=== PATIENT | female | born 1955 | race African-American/Black ===

== ENCOUNTER → 2017-04-21 | Outpatient (CLI) | payer OTHER ==
[~2017-04-21] VITALS: Ht 177.8 cm; Wt 79.4 kg
[~2017-04-21] MED LIST: ADVIL MIGRAINE200 M1 PO; ASPIR 8181 MG PO; B COMPLEX1 EACH PO; BENADRYL ALLERG25 MG PO; DYMISTA NASAL S23 GM NS; FUROSEMIDE 40 M40 M1 PO; GABAPENTIN600 M1 PO; HYDROXYZINE HCL10 M1 PO; KEPPRA PO; MAGNESIUM PO; METFORMIN HCL500 MG PO; MIRALAX17 G1 PO; MULTI VITAMIN1 EACH PO; NAPROXEN PO; TRAVATAN Z2.5 ML OPHTHALMIC; VITAMIN A8000 UNI1 PO; VITAMIN B-121000 MCG PO; VITAMIN C1000 MG PO; VITAMIN D PO; VITAMIN D32000 UNIT PO
--- NOTE | ~2017-04-21 | S ---
[facility] [place] [address] SURGICAL PATH RPT PROCEDURE Name: ADONIS BRITT Room #: REG JANETT Allen.#: [id number] Admission: 04/21/17 Date of : 55 Discharge: Report #: [id number] Path Case #: [id number] PATHOLOGY REPORT COLLECTION DATE: 04/21/2017 RECEIVED DATE: 04/21/2017 SUBMITTING PHYS: Dr. Felix Harvey OTHER PHYS: Dr. Kyle Garcia SPECIMEN(S) RECEIVED: A.Proximal colon B.Proximal ascending polyp C.Distal colon and rectum * * * * * * * * * * * * FINAL DIAGNOSIS: A. Large intestine, proximal colon, endoscopic biopsy: - Mild nonspecific changes, see comment. - Negative for dysplasia. B. Polyp, proximal ascending polyp, endoscopic biopsy: - Tubular adenoma. - Negative for high grade dysplasia. C. Large intestine, distal colon and rectum, endoscopic biopsy: - Mild nonspecific changes, see comment. - Negative for dysplasia. COMMENT: Parts A and C: Sections of colon biopsy tissues show a mild increase in cellularity of lamina propria including a few eosinophils. Rare eosinophils are present within the crypts and the surface epithelium. There are no granulomata, viral inclusions, or parasitic organisms present. The collagen layer underneath the epithelium is not thickened. There is no distortion in crypt architecture as well. There is no evidence of dysplasia. Overall findings are non-specific and may represent bowel preparation, resolving episode of colitis, focal active colitis, diverticulits as well as medication induced-colitis. Clinical correlation is suggested. (IUV; 04/25/17) PATHOLOGIST: rCistal Valente M.D. REPORT ELECTRONICALLY SIGNED BY: Cristal Valente M.D. DATE/TIME: 04/25/2017 16:43 * * * * * * * * * * * * GROSS PATHOLOGY: [facility] [address] [place] [address] SURGICAL PATH RPT PROCEDURE Name: ADONIS BRITT Room #: REG [facility]#: [id number] Admission: 04/21/17 Date of : 55 Discharge: Report #: [id number] Path Case #: [id number] A. Received in formalin labeled "Quincy Britt, proximal colon," are more than 10 segments of mayorga soft tissue measuring 1.5 x 0.5 x 0.2 cm in aggregate dimensions and ranging from 0.1 to 0.6 cm in maximum dimension. The specimen is submitted entirely in cassette A1. B. Received in formalin labeled " Quincy Britt, proximal ascending colon polyp," is a segment of mayorga soft tissue measuring 0.4 x 0.2 x 0.2 cm in maximum dimension. The specimen is submitted entirely in cassette B1. C. Received in formalin labeled " Quincy Britt, distal col and rectum," are more than 10 segments of mayorga soft tissue measuring 2.2 x 0.5 x 0.2 cm in aggregate dimensions and ranging from 0.1 to 0.7 cm in maximum dimension. The specimen is submitted entirely in cassette C1. (LUI; 04/22/2017) CLINICAL HISTORY: Diarrhea, diabetes, rule out colitis INITIAL CPT CODE(S): A; 74050 B; 14095 C; 90420 Professional services performed by [facility] at [facility] [address], [place] [address] Technical services performed by [facility] at [address] [place] [address], [address], [place] [address]. [facility] [address] [place] [address] PHONE: [phone] DIRECTOR: Andres Garner M.D. * * * END OF REPORT * * *
== END ==
LOC: EDSEX → GI 08:12
DX: K52.9 Noninfective gastroenteritis and colitis, unspecified (principal); E11.9 Type 2 diabetes mellitus without complications; D12.2 Benign neoplasm of ascending colon
CPT/HCPCS: 62110; 62900

== ENCOUNTER 2017-05-19 19:06 | Emergency (ER) | payer OTHER ==
[~2017-05-19] VITALS: Ht 167.6 cm; Wt 77.1 kg
[2017-05-19 23:20] LABS: URINE CREATININE-RANDOM* 64.1 mg/dL
[2017-05-19] MEDS ORDERED: DOXYCYCLINE 10100 MG PO ×2 (23:33→23:35)
[2017-05-19 23:34] LABS: ABSOLUTE NEUTROPHILS 2.6 thou/uL (1.4-8.2); BASOPHILS 0.7 % (0.0-2.0); EOSINOPHILS 2.4 % (0.0-3.0); HEMATOCRIT 37.5 % (37.0-47.0); HEMOGLOBIN 12.4 gm/dL (12.0-15.0); LYMPHOCYTES 49.1 % (24.0-44.0); MCH 29.8 pg (26.0-34.0); MCHC 32.9 g/dL (28.0-37.0); MCV 90.4 fL (80.0-100.0); MONOCYTES 8.5 % (1.0-8.0); PLATELET COUNT 179 thou/uL (150-400); POLYS 39.3 % (36.0-66.0); RBC 4.15 mil/uL (4.20-5.00); RDW 14.4 % (10.5-14.5); WBC 6.7 thou/uL (4.0-11.0)
[2017-05-19 23:42] LABS: CALCIUM 8.5 mg/dL (8.5-10.1); CREATININE 1.1 mg/dL (0.6-1.0); POTASSIUM 4.3 mmol/L (3.5-5.1)
[2017-05-19 23:45] LABS: MANUAL DIFF NO
[2017-05-19 23:48] LABS: ALBUMIN 3.6 g/dL (3.4-5.0); TOTAL BILIRUBIN 0.3 mg/dL (<0.1-1.0); TOTAL PROTEIN 7.8 g/dL (6.4-8.2)
== END 2017-05-20 00:34 | disposition home or self-care (01) ==
LOC: ER 19:06
PROVIDERS: Emergency Medicine
DX: L03.115 Cellulitis of right lower limb (principal); I10 Essential (primary) hypertension; E11.9 Type 2 diabetes mellitus without complications; K21.9 Gastro-esophageal reflux disease without esophagitis; E11.40 Type 2 diabetes mellitus with diabetic neuropathy, unspecified; Z98.890 Other specified postprocedural states

== ENCOUNTER → 2019-06-13 | Outpatient (CLI) | payer OTHER ==
[~2019-06-13] MED LIST changes: +DOXYCYCLINE 10100 MG PO
== END ==
LOC: ULTRA 09:06
DX: L97.529 Non-pressure chronic ulcer of other part of left foot with unspecified severity (principal); I73.9 Peripheral vascular disease, unspecified

== ENCOUNTER 2021-04-04 00:45 | Emergency (ER) | payer OTHER ==
[~2021-04-04] VITALS: Ht 170.2 cm; Wt 70.3 kg
[2021-04-04 03:00] VITALS: BP 131/59
== END 2021-04-04 03:00 | disposition home or self-care (01) ==
LOC: ER 00:45
DX: S70.01XA Contusion of right hip, initial encounter (principal); M25.511 Pain in right shoulder; I10 Essential (primary) hypertension; K21.9 Gastro-esophageal reflux disease without esophagitis; Z98.890 Other specified postprocedural states; Z79.899 Other long term (current) drug therapy; Z79.82 Long term (current) use of aspirin; W10.9XXA Fall (on) (from) unspecified stairs and steps, initial encounter; Y93.89 Activity, other specified; Y92.89 Other specified places as the place of occurrence of the external cause; Y99.8 Other external cause status

== ENCOUNTER → 2021-10-28 | Outpatient (CLI) | payer OTHER | LOC: HYPER 14:59 | PROVIDERS: ATTEND Emergency Medicine | DX: E11.622 Type 2 diabetes mellitus with other skin ulcer (principal); I83.018 Varicose veins of right lower extremity with ulcer other part of lower leg; L97.812 Non-pressure chronic ulcer of other part of right lower leg with fat layer exposed; I83.013 Varicose veins of right lower extremity with ulcer of ankle; L97.312 Non-pressure chronic ulcer of right ankle with fat layer exposed; I83.012 Varicose veins of right lower extremity with ulcer of calf; L97.212 Non-pressure chronic ulcer of right calf with fat layer exposed; I83.028 Varicose veins of left lower extremity with ulcer other part of lower leg; L97.822 Non-pressure chronic ulcer of other part of left lower leg with fat layer exposed; E11.621 Type 2 diabetes mellitus with foot ulcer; I83.025 Varicose veins of left lower extremity with ulcer other part of foot; L97.522 Non-pressure chronic ulcer of other part of left foot with fat layer exposed; R60.0 Localized edema; K21.9 Gastro-esophageal reflux disease without esophagitis; G40.909 Epilepsy, unspecified, not intractable, without status epilepticus; I10 Essential (primary) hypertension; E78.5 Hyperlipidemia, unspecified; G89.29 Other chronic pain; M54.50 Low back pain, unspecified; M19.90 Unspecified osteoarthritis, unspecified site; H91.90 Unspecified hearing loss, unspecified ear; Z79.84 Long term (current) use of oral hypoglycemic drugs; Z79.899 Other long term (current) drug therapy ==

== ENCOUNTER → 2021-11-17 | Outpatient (CLI) | payer OTHER | LOC: HYPER 08:54 | PROVIDERS: ATTEND Emergency Medicine | DX: E11.622 Type 2 diabetes mellitus with other skin ulcer (principal); I83.018 Varicose veins of right lower extremity with ulcer other part of lower leg; L97.812 Non-pressure chronic ulcer of other part of right lower leg with fat layer exposed; I83.013 Varicose veins of right lower extremity with ulcer of ankle; L97.312 Non-pressure chronic ulcer of right ankle with fat layer exposed; I83.012 Varicose veins of right lower extremity with ulcer of calf; L97.212 Non-pressure chronic ulcer of right calf with fat layer exposed; I83.028 Varicose veins of left lower extremity with ulcer other part of lower leg; L97.822 Non-pressure chronic ulcer of other part of left lower leg with fat layer exposed; E11.621 Type 2 diabetes mellitus with foot ulcer; I83.025 Varicose veins of left lower extremity with ulcer other part of foot; L97.522 Non-pressure chronic ulcer of other part of left foot with fat layer exposed; R60.0 Localized edema; K21.9 Gastro-esophageal reflux disease without esophagitis; G40.909 Epilepsy, unspecified, not intractable, without status epilepticus; I10 Essential (primary) hypertension; E78.5 Hyperlipidemia, unspecified; G89.29 Other chronic pain; M54.50 Low back pain, unspecified; M19.90 Unspecified osteoarthritis, unspecified site; H91.90 Unspecified hearing loss, unspecified ear; Z79.84 Long term (current) use of oral hypoglycemic drugs ==

== ENCOUNTER 2021-11-27 13:20 | Inpatient (IN) | payer OTHER ==
[~2021-11-27] VITALS: Ht 160 cm; Wt 85.1 kg
--- NOTE | ~2021-11-27 | EEG ---
[facility] [place] [place] [address] ELECTROENCEPHALOGRAM Name: ADONIS VELASQUEZ Room #: 247-P ADM IN M.R.#: [id number] Admission: 11/27/21 Attend Phys: Jerrell Abarca DO Discharge: Date of : 55 Report #: [id number] THIS REPORT FOR: //name// DATE OF SERVICE: 11/29/2021 This patient is being evaluated for altered mental status. EEG was done by placing the electrode by standard 10-20 system of electrode placement. Both referential and sequential montages were used for recording. Background activity is disorganized and poorly formed throughout the record. The photic stimulation is unremarkable. IMPRESSION: This is a severely abnormal EEG because it is disorganized and poorly formed. That will be consistent with encephalopathy. Well-defined electrical activity is present. Thank you very much for this referral. By: 41 47 Marcial Bravo MD /nt
[2021-11-27 13:43] VITALS: BP 122/42
[2021-11-27 13:58] LABS: HEMATOCRIT 32.9 % (37.0-47.0); HEMOGLOBIN 10.4 gm/dL (12.0-15.0); MCH 27.7 pg (26.0-34.0); MCHC 31.7 g/dL (28.0-37.0); MCV 87.3 fL (80.0-100.0); PLATELET COUNT 227 thou/uL (150-400); RBC 3.77 mil/uL (4.20-5.00); RDW 15.5 % (10.5-14.5); WBC 19.2 thou/uL (4.0-11.0)
[2021-11-27 14:10] LABS: CALCIUM 8.6 mg/dL (8.5-10.1); CREATININE 2.9 mg/dL (0.6-1.0)
[2021-11-27 14:12] LABS: POTASSIUM 5.6 mmol/L (3.5-5.1)
[2021-11-27 14:25] LABS: ALBUMIN 2.6 g/dL (3.4-5.0); TOTAL BILIRUBIN 0.4 mg/dL (0.2-1.0); TOTAL PROTEIN 8.3 g/dL (6.4-8.2)
[2021-11-27 14:32] LABS: SALICYLATE 3.1 mg/dL (2.8-20.0)
[2021-11-27 14:46] LABS: APTT 31.9 Seconds (24.5-32.8); INR 1.3
[2021-11-27 15:08] LABS: ABSOLUTE NEUTROPHILS 16.1 thou/uL (1.4-8.2); METAMYELOCYTES 1 %
--- NOTE | 2021-11-27 16:15 | EKG ---
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
[2021-11-27 16:33] LABS: URINE BILIRUBIN NEGATIVE (Negative); URINE BLOOD 2+ (Negative); URINE CLARITY CLOUDY; URINE COLOR YELLOW; URINE GLUCOSE-RANDOM* NEGATIVE (Negative); URINE KETONES NEGATIVE (Negative); URINE NITRITE-REFLEX NEGATIVE (Negative); URINE PROTEIN (DIPSTICK) 2+ (Negative); URINE UROBILINOGEN 0.2 E.U./dl (0.2-1.0)
[2021-11-27 16:34] LABS: URINE LEUKOCYTES-REFLEX 2+ (Negative)
[2021-11-27 16:57] LABS: AMP/METHAMP Negative (Negative); BARBITURATES Negative (Negative); BENZODIAZEPINES Negative (Negative); COCAINE Negative (Negative); METHADONE Negative (Negative); OPIATES POSITIVE (Negative); PCP Negative (Negative)
[2021-11-27 17:07] LABS: AMORPHOUS URATES Few /LPF (None Seen); BACTERIA-REFLEX >30 Many /HPF (None Seen); CASTS None Seen /LPF (None Seen); SQUAMOUS None Seen /LPF (0-3); URINE RBC 3-10 Few /HPF (NONE SEEN); URINE WBC-REFLEX >25 Many /HPF (0-5)
[2021-11-27 18:44] VITALS: BP 119/54
[2021-11-27 20:00] VITALS: BP 115/64
[2021-11-27] MEDS ORDERED: LISINOPRIL2.5 MG PO (20:51)
[2021-11-27] MEDS ORDERED: GLIPIZIDE5 MG PO (20:52)
[2021-11-27] MEDS ORDERED: PRAVACHOL 20 MG20 M1 PO (20:53)
[2021-11-27] MEDS ORDERED: MYSOLINE50 MG PO (20:54)
[2021-11-28] VITALS (7 sets, daily range): BP systolic 91–107; BP diastolic 42–63
[2021-11-28 01:45] LABS: HEMATOCRIT 27.7 % (37.0-47.0); HEMOGLOBIN 8.9 gm/dL (12.0-15.0); MCH 27.7 pg (26.0-34.0); MCV 86.6 fL (80.0-100.0); RBC 3.2 mil/uL (4.20-5.00); RDW 15.3 % (10.5-14.5); WBC 15.8 thou/uL (4.0-11.0)
[2021-11-28 01:52] LABS: ALBUMIN 1.9 g/dL (3.4-5.0); CALCIUM 8.1 mg/dL (8.5-10.1); CREATININE 2.7 mg/dL (0.6-1.0); TOTAL BILIRUBIN 0.4 mg/dL (0.2-1.0); TOTAL PROTEIN 6.5 g/dL (6.4-8.2)
[2021-11-28 02:03] LABS: POTASSIUM 4.3 mmol/L (3.5-5.1)
--- NOTE | 2021-11-28 04:08 | NUR ---
RECIEVED PATIENT AT 1900H.ASSESSMENT DONE CHARTED.ADMISSION COMPLETED.MEDS GIVEN A SPER MAR.ALL NEEDS ATTENDED.TO CONTINOUSLY MONITOR.
--- NOTE | 2021-11-28 06:07 | NUR ---
INFORMED COUNSEL(LA NENA) OF THE BLOOD CULTURE RESULT.RELAYED MORNING LAB RESULTS AND LACTIC ACID RESULT AND VITAL SIGNS TREND.PATIENT IS ALREADY ON ANTIBIOTICS.NO NEW ORDER FOR NOW.
[2021-11-29] VITALS (7 sets, daily range): BP systolic 76–133; BP diastolic 38–56
--- NOTE | 2021-11-29 00:46 | NUR ---
2005 TEMP 101.5. NOTIFIED CHUMMER AND DR. JACOBSEN. ROOM COOLED, BLANKETS OFF, ORDERS FOR TYLENOL SUPP GIVEN. [address] SCAN PER BED. [address] SCAN PER BED. 0005 O2 SAT 83-88% ON RA. PLACED ON 2L/NC AND SAT NOW 94%. PATIENT MORE AWAKE AND PUSHING AT NURSE. WILL SAY NAME AND POINTING TO LEGS AND SAYS PAIN. 0035 FENTYNAL GIVEN PER ORDERS. REPOSITIONED AND REASSURED.
--- NOTE | 2021-11-29 02:56 | NUR ---
SLEPT MOST OF SHIFT. AWAKE AT TIMES AND WILL STATE NAME BUT DOES NOT KNOW WHERE SHE IS. PAIN MEDS GIVEN NEEDED. WORKING ON GOALS AND PLAN OF CARE FOR NOC. CONTINUE TO ASSES.
[2021-11-29 03:07] LABS: ABSOLUTE NEUTROPHILS 10.6 thou/uL (1.4-8.2); BASOPHILS 0.1 % (0.0-2.0); EOSINOPHILS 1.8 % (0.0-3.0); HEMATOCRIT 26.5 % (37.0-47.0); HEMOGLOBIN 8.6 gm/dL (12.0-15.0); LYMPHOCYTES 9.8 % (24.0-44.0); MCH 28.3 pg (26.0-34.0); MCHC 32.3 g/dL (28.0-37.0); MCV 87.6 fL (80.0-100.0); MONOCYTES 7.9 % (1.0-8.0); PLATELET COUNT 150 thou/uL (150-400); POLYS 80.4 % (36.0-66.0); RBC 3.03 mil/uL (4.20-5.00); WBC 13.2 thou/uL (4.0-11.0)
[2021-11-29 03:09] LABS: CALCIUM 8.2 mg/dL (8.5-10.1); CREATININE 2.9 mg/dL (0.6-1.0); MAGNESIUM 1.7 mg/dL (1.8-2.4); POTASSIUM 3.8 mmol/L (3.5-5.1)
[2021-11-29 05:39] LABS: GLYCOHEMOGLOBIN (HGB A1C) 9.9 % (4.8-5.6)
--- NOTE | 2021-11-29 07:30 | NUR ---
0430 TELEMETRY SHOWS SVT 190'S. STICK WELDER CALLED. SEE STICK WELDER ASSESMENT FOR INFORMATION. 0530 STATUS POST ADENISON IVP X1 NOW ST 110'S. ASSIST TO REPOSITION NEEDED. PATIENT REMAINS AMS, WILL OPEN EYES AND MOANS AT TIMES. AT TIMES WILL SAY NAME. [address] RM CALLED. ORDERS FOR AM TROPONIN. 0730 PATIENT MORE AWAKE AND ASKING FOR SOMETHING SWEET. REINFORCED PATIENT THAT IS NPO AT THIS TIME.
--- NOTE | 2021-11-29 15:11 | HC ---
[place] [address] CONSULTATION Name: ADONIS VELASQUEZ Room #: 203-P ADM IN M.R.#: [id number] Admission: 11/27/21 Attend Phys: Jerrell Abarca DO Discharge: Date of : 55 Report #: [id number] THIS REPORT FOR: cc: Kyle Garcia MD, Steven E. MD [place], Allen B. MD ~ DATE OF SERVICE: 11/28/2021 WOUND CARE CONSULTATION NOTE REASON FOR CONSULTATION: Bilateral leg ulcers. HISTORY OF PRESENT ILLNESS: The patient is a 66-year-old woman, well known to wound care by Dr. Sanjeev Cabral. She is here with her daughter, Naun. The patient is seen in the wound care clinic by Dr. Cabral for bilateral venous stasis leg ulcers that were chronic, nonhealing. These have been treated with Medihoney and leg wraps. The patient was admitted with altered mental status. She lives with her daughter. The patient has complained of a headache and altered mental status. CT scan ruled out intracerebral acute process in the ER. The patient has apparent sepsis with elevated white blood count 19,000 on 11/27, and 15,000 today. She is being medically diagnosed and stabilized. She is being treated with IV vancomycin and Zosyn. I am asked to see her due to chronic leg ulcers. PAST MEDICAL HISTORY: 1. 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 2. Diabetes mellitus type 2 with peripheral neuropathy. 3. Venous stasis with leg ulcerations chronically. 4. History of acute renal failure. 5. Hyperkalemia on today's admission, potassium 5.6 on admission. ALLERGIES: No known drug allergies. LABORATORY DATA: Includes Mild protein-calorie malnutrition, albumin 2.6. PHYSICAL EXAMINATION: GENERAL: Shows a thin, elderly woman with some altered mental status. She is in some mild distress from a headache. Her daughter is with. LUNGS: Respirations unlabored. ABDOMEN: Soft. EXTREMITIES: Focused lower extremity exam shows light dressings, which are removed, with Medihoney dressings, which were adherent to leg ulcers. The patient has a small ulcer of her right lateral ankle, measuring approximately 2.5 cm x 1 cm, which is superficial with adherent exudate. The patient has a larger chronic superficial ulceration of her posterior right leg, on the calf, measuring approximately 4.5 cm x 2 cm with some adherent slough. On the left [address] [place] [address] CONSULTATION Name: ADONIS VELASQUEZ Room #: 203-P [facility] IN .R.#: [id number] Admission: 11/27/21 Attend Phys: Jerrell Abarca DO Discharge: Date of : 55 Report #: [id number] leg, The patient 3 pretibial ulcers, one measuring approximately 2.5 cm x 0.8 cm and another measuring 1.5 x 0.8 cm and a third one measuring 1 x 1 cm. There is a small ulceration on the left posterior calf. All the Medihoney dressings are removed. Aquacel silver dressings are placed, covered with Xeroform, ABD, Kerlix and an Markus wrap. Right dorsalis pedis pulses are present. IMPRESSION: 1. Headache with altered mental status. 2. Sepsis with leukocytosis, being treated with IV antibiotics, vancomycin and Zosyn. 3. Diabetes mellitus type 2 with peripheral neuropathy. 4. 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 5. Venous stasis with bilateral leg ulcers, chronic. 6. Hyperkalemia, being treated with Kayexalate. 7. Mild protein-calorie malnutrition, albumin 2.6. 8. Sepsis, leukocytosis, wound care. PLAN: We will treat the leg ulcers, which are chronic with topical gentamicin 0.1% ointment, Aquacel silver, cover with Xeroform, ABD, Kerlix and Markus wrap. Wound care team will follow. <ELECTRONICALLY SIGNED> By: Rupesh Stover MD 11/29/21 1511 1240 1822 Rupesh Stover MD /nt
--- NOTE | 2021-11-29 16:58 | NUR ---
PT IS DROWSY, ORIENTED TO SELF; CAN SOMETIMES ASK TO HAVE MOUTH SWAB. VS BP 100SBP/70DBP, AFEBRILE, SR-ST ON THE MONITOR; SOME TREMORS WHEN ASSESSING. WOUND CARE COMPLETED ON BLE. DR COBOS CONSULTED, DR RM CONSULTED, DR RUIZ CONSULTED, DR DUBOSE CONSULTED. POC IS TO CONTINUE TO ASSESS PT MENTATION. MRI SCHEDULED FOR AM. DTR TO BRING CAP FOR COCHLEAR IMPLANT. PAIN MGMT. FALL PRECAUTIONS IN PLACE. NO CONCERNS AT THIS TIME.
[2021-11-30] VITALS (95 sets, daily range): BP systolic 73–207; BP diastolic 32–164
[2021-11-30 00:07] LABS: BE(vivo) -7.5 mmol/L (-2 to +3); HCO3 17.1 mmol/L (22.0-26.0); PCO2 30.6 mmHg (35.0-45.0); pH 7.365 (7.360-7.450); sO2 98.7 % (92.0-98.0)
--- NOTE | 2021-11-30 00:07 | NUR ---
2119 DAUGHTER HERE WITH COCHLEAR IMPLANT CAP FOR AM MRI. PATIENTS EYES OPEN BUT NOT TALKING AT TIMES. MOVING ARMS AROUND. SAID NO TO PAIN. 2229 PATIENT IN SVT 250'S. INCREASED TREMORS, RESPONDS TO STERNAL RUB. GAS BRAZER CALLED. SEE INTERVENTION FOR INFORMATION. DR. RM NOTIFIED BY DIGITAL STRATEGY SPECIALIST. 2314 TO ICU PER BED. REPORT GIVEN TO IDA VELAZQUEZ. CALLED DAUGHTER AND DIGITAL STRATEGY SPECIALIST SPOKE WITH HER.
--- NOTE | 2021-11-30 01:17 | NUR ---
PT ARRIVED FROM AT 2300. RAPID RESPONSE WAS CALLED, REFER TO PREVIOUS CHARTING. REPORT RECEIVED FROM CAROLINE SEALS. PT WAS ATTACHED TO ICU MONITORS, ASSESSED PER ICU PROTOCOL. ALVARO ROBERTSON AT BEDSIDE. MEDHAT SPOKE TO DR. RM REGARDING PTS CONDITION AND PTS DAUGHTER (E'RA). DAUGHTER REQUESTING TO COME VISIT - OKAY'D BY YULIA BECKHAMMAP COMPILER. 2330 - DAUGHTER WAS AT BEDSIDE. ALVARO MELÉNDEZ STILL PRESENT AND ANSWERING QUESTIONS. DAUGHTER WAS GIVEN SECURITY CODE AND UNIT PHONE NUMBER.
[2021-11-30 02:32] LABS: CALCIUM 8.3 mg/dL (8.5-10.1); POTASSIUM 3.9 mmol/L (3.5-5.1)
[2021-11-30 02:34] LABS: CREATININE 3.9 mg/dL (0.6-1.0)
[2021-11-30 02:36] LABS: HEMATOCRIT 26.6 % (37.0-47.0); HEMOGLOBIN 8.6 gm/dL (12.0-15.0); MCH 28.3 pg (26.0-34.0); MCHC 32.3 g/dL (28.0-37.0); MCV 87.8 fL (80.0-100.0); RBC 3.03 mil/uL (4.20-5.00); RDW 16.4 % (10.5-14.5); WBC 9.1 thou/uL (4.0-11.0)
--- NOTE | 2021-11-30 06:11 | NUR ---
PT IN AND OUT OF SVT RATE 230-260'S MULTIPLE TIMES THROUGHOUT THE NIGHT. PT WOULD ALWAYS SPONTANEOUSLY CORRECT RHYTHM. CARDIZEM GTT STARTED PER DR. RM TO ATTEMPT TO CONTROL RATE. MEDHAT BICYCLE RACER NOTIFIED MULTIPLE TIMES RHYTHM AND RATE CHANGED. 0500 - PT MAINTAINED HR IN 130-150'S. DR. RM CALLED AND UPDATED ON PTS CONDITION. ORDERES OBTAINED. THIS RN CALLED RENAL TO UPDATE ON PTS CONDITION AND STILL AWAITING A CALL BACK.
--- NOTE | 2021-11-30 07:22 | NUR ---
PATIENT TRANSFERRED TO ICU DUE TO CHANGE IN MEDICAL STATUS. WILL NEED NEW ORDERS ONCE PATIENT IS ABLE TO PARTICIPATE.
--- NOTE | 2021-11-30 07:41 | NUR ---
ORDERS FOR EVAL AND TREAT HOWEVER Pt TRANSFERRED TO ICU. WILL PLACE ON HOLD AND AWAIT NEW ORDERS WHEN APPROPRIATE
[2021-11-30 11:38] LABS: CALCIUM 8.7 mg/dL (8.5-10.1); CREATININE 4.1 mg/dL (0.6-1.0)
--- NOTE | 2021-11-30 12:57 | EKG ---
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1955 Requested By: Sera Amor Order Number: [id number] MD: Remy Collado Measurements Intervals [place] Rate: 113 P: 53 OR: 111 QRS: 24 QRSD: 84 T: 13 QT: 315 QTc: 432 Interpretive Statements Sinus tachycardia Ventricular premature complex Baseline wander in lead(s) V6 Compared to ECG 11/27/2021 13:32:06 Ventricular premature complex(es) now present Sinus rhythm no longer present Atrial premature complex(es) no longer present Electronically Signed On 11-30-2021 12:56:48 CLINIC SUPERVISOR by Remy Collado [email or web address] <ELECTRONICALLY SIGNED> By: Remy Clolado MD, FAC 11/30/21 1256 0456 0456 Remy Collado MD, [facility] /EPI
--- NOTE | 2021-11-30 12:59 | EKG ---
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1955 Requested By: Sera Amor Order Number: [id number] MD: Remy Collado Measurements Intervals [place] Rate: 140 P: [place]: QRS: -5 QRSD: 150 T: -81 QT: 363 QTc: 554 Interpretive Statements Atrial flutter with predominant 2:1 AV block Nonspecific intraventricular conduction delay Borderline repolarization abnormality Compared to ECG 11/29/2021 04:56:11 2:1 AV block now present Intraventricular conduction delay now present Sinus tachycardia no longer present Ventricular premature complex(es) no longer present Electronically Signed On 11-30-2021 12:58:38 RETAIL GENERAL MANAGER by Remy Collado [email or web address] <ELECTRONICALLY SIGNED> By: Remy Collado MD, [facility] 11/30/21 1258 0836 0836 Remy Collado MD, [facility] /EPI
--- NOTE | 2021-11-30 14:57 | NUR ---
VAT CONSULTED FOR CVAD. DISCUSSED BENEFITS AND RISK WITH PT'S DAUGHTER, VERBALIZED UNDERSTANDING. LIJ TL 6FR TELEFEX PLACED. STAT CXR REVEALED LINE COILED, ATTEMPTED TO POWER FLUSH AND REPOSITION X2 UNSUCCESSFUL. PT COUGHING DURING ALL PROCEDURES. ATTEMPTED TO DO OTW CUTTING CL AT 11CM, PLACING GUIDEWIRE, PT COUGHED AND GUIDEWIRE CAME OUT AND CATHETER WENT INTO NECK UNABLE TO GRASP END. PT IMMEDIATELY PLACED ON LEFT SIDE. PAGED IR STAT WHILE HOLDING PRESSURE ON NECK. STAT CXR ORDERED. ATTEMPTED TO SPEAK TO DAUGHTER BUT SHE WAS NOT IN WAITING ROOM SO CALLED HER CELLPHONE AND MESSAGE LEFT. REPORT GIVEN TO IZABELLA FROM IR. PT TAKEN PER BED TO IR
[2021-11-30 17:06] LABS: GLOBULIN TOTAL 4.5 g/dL (2.2-3.9); M-SPIKE Not Observed g/dL (Not Observed)
[2021-11-30 17:51] LABS: BE(vivo) -15.5 mmol/L (-2 to +3); HCO3 10.5 mmol/L (22.0-26.0); PCO2 25.8 mmHg (35.0-45.0); PO2 57.5 mmHg (80.0-100.0); pH 7.228 (7.360-7.450); sO2 85.3 % (92.0-98.0)
--- NOTE | 2021-11-30 20:39 | NUR ---
1200 SEE [facility] FOR ASSESSMENT. PT LETHARIC, RESTLESS. 0N 02 6LNC-O2SAT 94-95. LOW GRADE TEMP THIS AM. ON GRAND ROUNDS, ICU CC TANK SYSTEMS MAINTAINER, DR BERNARD ORDERED, FLUIDS, AND CENTRAL LINE FOR CVP AND MEDS. IV TEAM, NASRIN EXPLAINED PROCEDURE. CONSENT SIGNED. MONITOR CONT TO SHOW AFIB/FLUTTER WITH RVR 140 DESPITE AMIODORONE AND DIGOXIN. CONT ON LEVOPHED TO KEEP MAP>65. UO ADEQUATE AT THIS TIME. CONT PLAN OF CARE 1600. DURING CENTRAL LINE/PICC LINE PLACEMENT AT BEDSIDE, COMPLICATION AROSE. PT TO IR EMERGENTLY. NO CHANGE IN PT STATUS OR HEMODYNAMICS, GTT BEFORE WITH AMIODORONE, AND LEVOPHED CONTINING PREVIOUS. DAUGHTER UPDATED BY IV THERAPY RN, NASRIN. 1900 PT BACK FROM IR. HR DOWN TO 98- AMIODORONE GTT NOW INFUSING AT 0.5MG/HR AND FENTANYL GTT AT 0.7MCG/KG/BENJAMIN. BP WNL. WILL WEAN DOWN TOLERATED. PT WORK OF BREATHING WITH RR 40'S. INCREASED 02 NEEDS, UPDATE CALLED TO DR HORNER ORDERS RECEIVED. CALLED ABG TO DR BERNARD, ORDERS RECEIVED. DAUGHTER WAS IN ROOM-UPDATE GIVEN. WILL CONT TO MONITOR, WILL PLACE PT ON BIPAP ORDERED
[2021-11-30 21:46] LABS: BE(vivo) -9.3 mmol/L (-2 to +3); PCO2 23.2 mmHg (35.0-45.0); PO2 411.8 mmHg (80.0-100.0); sO2 99.8 % (92.0-98.0)
--- NOTE | 2021-11-30 22:31 | NUR ---
UPON INITAL ASSESSMENT PT WAS TACHYPENIC IN THE 40-50'S, UNABLE TO MAINTAIN A GOOD OXYGEN SATURATION, AND USING ACCESSORY MUSCLES TO BREATH. DR. BERNARD WAS CALLED AND NOTIFIED OF PTS CONDITION. DR. BERNARD REQUESTING THAT ER MD COME INTUBATE THE PT. 2024 - PT WAS INTUBATED. NO COMPLICATIONS. SPOKE WITH DAUGHTER (E'RA) AND UPDATED ON THE EVENTS THAT OCCURED. ALL QUESTIONS ANSWERED.
[2021-12-01] VITALS (91 sets, daily range): BP systolic 57–200; BP diastolic 26–80
[2021-12-01 05:40] LABS: HEMATOCRIT 26.8 % (37.0-47.0); HEMOGLOBIN 8.7 gm/dL (12.0-15.0); MCH 28.1 pg (26.0-34.0); MCHC 32.6 g/dL (28.0-37.0); MCV 86.2 fL (80.0-100.0); RBC 3.11 mil/uL (4.20-5.00); WBC 10.6 thou/uL (4.0-11.0)
[2021-12-01 06:00] LABS: CALCIUM 7.5 mg/dL (8.5-10.1); CREATININE 4.8 mg/dL (0.6-1.0); POTASSIUM 3.9 mmol/L (3.5-5.1)
--- NOTE | 2021-12-01 11:29 | 2DMMODE ---
[facility] [place] [address] 2 D/M-MODE ECHOCARDIOGRAM Name: ADONIS VELASQUEZ Room #: 247-P ADM IN M.R.#: [id number] Admission: 11/27/21 Attend Phys: Curtis Abarca DO Discharge: Date of : 55 Report #: [id number] THIS REPORT FOR: cc: Kyle Garcia MD, Steven E. MD Lammoglia, Francisco J. MD ~ APPROVED REPORT Study performed: 12/01/2021 08:59:28 EXAM: Comprehensive 2D, Doppler, and color-flow Echocardiogram Patient Location: ICU Room #: [facility] Status: routine BSA: 1.72 HR: 84 bpm BP: 109/54 mmHg Rhythm: NSR Other Information Study Quality: Good Indications Arrhythmia Diabetes Atrial Fibrillation 2D Dimensions RVDd: 40.32 mm IVSd: 7.73 (7-11mm) LVOT Diam: 20.93 (18-24mm) LVDd: 38.51 mm PWd: 7.64 (7-11mm) LVDs: 21.86 (25-40mm) Aortic Root: 25.42 mm IVC: 22.00 mm Volumes Left Atrial Volume (Systole) Single Plane 4CH: 30.65 mL Single Plane 2CH: 37.37 mL LA ESV Index: 23.00 mL/m2 Pulmonary Valve PV Peak Zen.: 1.12 m/s PV Peak Gr.: 5.02 mmHg Tricuspid Valve [facility] [address] [place] [address] 2 D/M-MODE ECHOCARDIOGRAM Name: ADONIS VELASQUEZ Room #: 247-P ADM IN M.R.#: [id number] Admission: 11/27/21 Attend Phys: Curtis Abarca DO Discharge: Date of : 55 Report #: [id number] TR Peak Zen.: 3.42 m/s TR Peak Gr.: 46.91 mmHg PA Pressure: 57.00 mmHg Left Ventricle The left ventricle is normal size. There is normal left ventricular wall thickness. Left ventricular systolic function is hyperdynamic. LVEF is 65-70%. This study is not technically sufficient to allow evaluation of the LV diastolic function. Right Ventricle The right ventricle is normal size. The right ventricular systolic function is normal. Atria The left atrium size is normal. Right atrium is borderline dilated. Aortic Valve The aortic valve is normal in structure. No aortic regurgitation is present. There is no aortic valvular stenosis. Mitral Valve The mitral valve is normal in structure. Trace mitral regurgitation. No evidence of mitral valve stenosis. Tricuspid Valve The tricuspid valve is normal in structure. There is mild tricuspid regurgitation. Estimated PAP 57 mmHg. There is moderate pulmonary hypertension. Pulmonic Valve The pulmonary valve is normal in structure. There is no pulmonic valvular regurgitation. Great Vessels The aortic root is normal in size. IVC is dilated and collapses >50% with inspiration. Pericardium There is no pericardial effusion. <Conclusion> The left ventricle is normal size. There is normal left ventricular wall thickness. LVEF is 65-70%. [facility] [address] [place] [address] 2 D/M-MODE ECHOCARDIOGRAM Name: ADONIS VELASQUEZ Room #: 247-P ADM IN M.R.#: [id number] Admission: 11/27/21 Attend Phys: Curtis Abarca DO Discharge: Date of : 55 Report #: [id number] The right ventricle is normal size. The left atrium size is normal. The aortic valve is normal in structure. The mitral valve is normal in structure. The mitral valve is normal in structure. Trace mitral regurgitation. The tricuspid valve is normal in structure. There is mild tricuspid regurgitation. Estimated PAP 57 mmHg. There is moderate pulmonary hypertension. The pulmonary valve is normal in structure. The aortic root is normal in size. There is no pericardial effusion. <ELECTRONICALLY SIGNED> By: David Masters MD 12/01/21 1128 1128 112 David Masters MD /INF
--- NOTE | 2021-12-01 15:14 | NUR ---
SPOKE WITH DAUGHTER AND UPDATED HER. VERIFIED THAT PATIENT IN UNABLE TO RECEIVE ANY BLOOD PRODUCTS DUE TO CATHOLIC
--- NOTE | 2021-12-01 15:25 | NUR ---
INITIAL ASSESSMENT: SW reviewed chart and spoke with nursing and attending physician. Pt was admitted from home due to septic shock. Pt with hx HTN/DM/neuropathy. Pt is in ICU. Pt was intubated on 11/30/2021. Pt is on IV meds. No family present at bedside during SW visit. SW left voice message for pt's dtr, E'Ra ([phone]). Per chart, pt lives at home with her dtr E'. Pt is a Worship. Awaiting call back from pt's dtr at this time to complete assessment and discuss discharge plan. SW is following to assist as needed.
[2021-12-01 15:42] LABS: BE(vivo) -1.5 mmol/L (-2 to +3); HCO3 23.8 mmol/L (22.0-26.0); PCO2 42.3 mmHg (35.0-45.0); PO2 233.1 mmHg (80.0-100.0); pH 7.368 (7.360-7.450); sO2 99.5 % (92.0-98.0)
--- NOTE | 2021-12-01 18:05 | NUR ---
1645: PAGED NEPHROLOGY REGARDING LOW URINE OUTPUT. DID NOT RECEIVE A CALL BACK.
[2021-12-02] VITALS (79 sets, daily range): BP systolic 66–199; BP diastolic 31–91
--- NOTE | 2021-12-02 04:40 | NUR ---
PT MAKING POOR PROGRESS TOWARD GOALS. ON TUBE FEEDING AT 10ML/HR. INITIAL AND SUBSEQUENT RESIDUAL CHECK WERE 5ML. THIS AM RESIDUAL WAS 150ML. THIS 150 WAS WASTED AND LINE WAS FLUSHED. WILL HOLD TUBE FEEDINGS AND ASK DAY RN TO REPORT THIS TO PHYSICIAN. BOWEL SOUNDS HYPOACTIVE. NO NOTED BM OVERNIGHT. ON VENTILATOR OVERNIGHT. FIO2 AT 60% O2 SATS MID 90'S THROUGHOUT THE NIGHT UNTIL THIS AM (APPROXIMATELY 0300) WHEN SATS BEGAN TO FALL INTO THE 80'S. FI02 TITRATED UP TO 90% WITH APPROPRIATE RETURN OF O2 SAT TO MID 90'S. WILL TITRATE DOWN ON FIO2 AT VALUES PERMIT.
[2021-12-02 13:28] LABS: HEMATOCRIT 27.6 % (37.0-47.0); HEMOGLOBIN 8.9 gm/dL (12.0-15.0); MCH 27.6 pg (26.0-34.0); MCHC 32.3 g/dL (28.0-37.0); MCV 85.4 fL (80.0-100.0); RBC 3.24 mil/uL (4.20-5.00); RDW 16.5 % (10.5-14.5); WBC 16.7 thou/uL (4.0-11.0)
[2021-12-02 13:50] LABS: ALBUMIN 1.1 g/dL (3.4-5.0); CALCIUM 6.9 mg/dL (8.5-10.1); CREATININE 5.4 mg/dL (0.6-1.0); POTASSIUM 3.8 mmol/L (3.5-5.1); TOTAL BILIRUBIN 1.8 mg/dL (0.2-1.0); TOTAL PROTEIN 5.2 g/dL (6.4-8.2)
[2021-12-02 17:06] LABS: CALCIUM 6.9 mg/dL (8.5-10.1); CREATININE 5.5 mg/dL (0.6-1.0); POTASSIUM 3.7 mmol/L (3.5-5.1)
--- NOTE | 2021-12-02 20:10 | NUR ---
PT VENTED AND SEDATED. VERSED, FENTANYL, AMIO, LEVO AND INSULIN GTTS INFUSING. TOLERATING TUBE FEEDING WITH 100ML RESIDUAL. BP HIGH AND LOW THIS SHIFT SR AWARE. LASSITER TO ELDON. PT DAUGHTER AT BEDSIDE THIS SHIFT. WILL CONTINUE TO MONITOR.
[2021-12-03] VITALS (34 sets, daily range): BP systolic 85–165; BP diastolic 41–73
[2021-12-03 03:46] LABS: HEMATOCRIT 26.8 % (37.0-47.0); HEMOGLOBIN 8.6 gm/dL (12.0-15.0); MCH 27.4 pg (26.0-34.0); MCHC 32.1 g/dL (28.0-37.0); MCV 85.3 fL (80.0-100.0); RBC 3.14 mil/uL (4.20-5.00); RDW 16.2 % (10.5-14.5); WBC 18.7 thou/uL (4.0-11.0)
[2021-12-03 05:01] LABS: CALCIUM 6.8 mg/dL (8.5-10.1); CREATININE 5.8 mg/dL (0.6-1.0); POTASSIUM 3.3 mmol/L (3.5-5.1)
--- NOTE | 2021-12-03 10:16 | NUR ---
RENAL ROUNDED. ORDERS TO GIVE ONETIME DOSE OF ALBUMIN PRIOR TO AFTERNOON LASIX DOSE. RECHECK K+ THIS AFTERNOON IF LESS THAN 3.3 GIVE ONETIME DOSE 20 k+ IV. ORDERS TO START FLUID BOLUS WITH TUBE FEEDS, 200 WF Q6HR. .
--- NOTE | 2021-12-03 14:22 | NUR ---
noted patient to have continued hyperglycemia despite high dose insulin gtt infusing. hourly blood sugars not showing any improvement. noted right arm with peripherial iv to be signicifantly more swollen than the left arm. immediately discontinued iv and placed insulin infusion to right jugular line. hourly glucose checks showed significant improvement. Communicated this to dr. snider, determined with working iv that patient can come off insulin gtt and switch to sliding scale insulin.
--- NOTE | 2021-12-03 20:11 | NUR ---
CALLED DR GALVAN NEPHROLOGY TO INFORM THAT K LEVEL IS 3.2, UP FROM 2.8 EARLIER TODAY AND AFTER DR JONES ORDERED TO GIVE 20 MEQ OF KCL. CREAT IS 5.8. DR GALVAN ORDERED TO GIVE 20 MEQ MORE OF KCL.
[2021-12-04] VITALS (115 sets, daily range): BP systolic 74–202; BP diastolic 24–85
[2021-12-04 05:15] LABS: HEMATOCRIT 26.1 % (37.0-47.0); HEMOGLOBIN 8.4 gm/dL (12.0-15.0); MCH 27.5 pg (26.0-34.0); MCV 86.1 fL (80.0-100.0); RBC 3.03 mil/uL (4.20-5.00); RDW 16.5 % (10.5-14.5); WBC 24.7 thou/uL (4.0-11.0)
[2021-12-04 05:46] LABS: CALCIUM 6.5 mg/dL (8.5-10.1); CREATININE 5.8 mg/dL (0.6-1.0); POTASSIUM 3.4 mmol/L (3.5-5.1)
--- NOTE | 2021-12-04 09:39 | NUR ---
Continue to increase tube feed to goal 60ml/hr of glucerna. If pt requires need for dialysis, then change formula to nepro at goal 40ml/hr
--- NOTE | 2021-12-04 12:35 | NUR ---
Case discussed with the care team. Pt remains in ICU sedated and on the vent with 50%FIO2. Renal,pulm, cardiology, wound care and ID are following. Dtr and sister have been at bedside visiting and the attending has also spoken with her dtr. The pt lives at home with her dtr and her pcp is Dr. Kyle Garcia. Dc timeframe and needs are uncertain pending her progress. Will continue to follow.
[2021-12-05] VITALS (82 sets, daily range): BP systolic 67–165; BP diastolic 31–67
[2021-12-05 05:32] LABS: HEMATOCRIT 26.2 % (37.0-47.0); HEMOGLOBIN 8.4 gm/dL (12.0-15.0); MCH 27.6 pg (26.0-34.0); MCHC 32.2 g/dL (28.0-37.0); MCV 85.6 fL (80.0-100.0); RBC 3.06 mil/uL (4.20-5.00); RDW 16.5 % (10.5-14.5); WBC 21.7 thou/uL (4.0-11.0)
[2021-12-05 05:46] LABS: ALBUMIN 1.5 g/dL (3.4-5.0); CALCIUM 6.2 mg/dL (8.5-10.1); CREATININE 6.1 mg/dL (0.6-1.0); PHOSPHORUS 4.7 mg/dL (2.5-4.9); POTASSIUM 3.6 mmol/L (3.5-5.1)
--- NOTE | 2021-12-05 14:32 | NUR ---
AT THE TIME OF RN'S ASSESSMENT IT WAS NOTED THAT PT'S OG TUBE HAD DISLODGED AND WITHDRAWN THERE WERE TUBE FEEDING LIKE FLUID AROUND THE MOUTH AND WAS ALSO BLOOD TINGED, RN PROVIDED ORAL CARE AT THE TIME, REINSERTED THE OG TUBE THEN HAD THE PLACEMENT VERIFIED. ENIO HUGGER WAS PLACED ON PT FOR HYPOTHERMIA, TUBE FEEDING WAS STOPPED FOR THE MOMENT UNTIL OG TUBE PLACEMENT COULD BE CONFIRMED. PT'S INSULIN SLIDING SCALE WAS INCREASED TO MODERATE DOSE PER PROTOCOL. FAMILY MEMBER WAS AT THE BEDSIDE TODAY, THE DAUGHTER AND THIS RN SPOKE AND RN GAVE UPDATES REGARDING CURRENT STATUS OF THE PATIENT WELL THE CARE PLAN FOR THE MOMENT. THE DAUGHTER VERBALIZED UNDERSTANDING AT THE TIME AND EXPRESSED GRATITUDE. NO OTHER CONCERNS AT THIS TIME, CONTINUING TO MONITOR CLOSELY
[2021-12-06] VITALS (94 sets, daily range): BP systolic 72–159; BP diastolic 36–72
[2021-12-06 05:24] LABS: HEMOGLOBIN 8.8 gm/dL (12.0-15.0); MCHC 32.5 g/dL (28.0-37.0); MCV 85.9 fL (80.0-100.0); RBC 3.14 mil/uL (4.20-5.00); RDW 16.4 % (10.5-14.5); WBC 28.3 thou/uL (4.0-11.0)
[2021-12-06 05:55] LABS: ALBUMIN 1.6 g/dL (3.4-5.0); CREATININE 6.2 mg/dL (0.6-1.0); PHOSPHORUS 6.7 mg/dL (2.5-4.9); POTASSIUM 3.9 mmol/L (3.5-5.1)
[2021-12-06 06:01] LABS: CALCIUM 5.9 mg/dL (8.5-10.1)
[2021-12-06 11:17] LABS: URINE BILIRUBIN NEGATIVE (Negative); URINE BLOOD 2+ (Negative); URINE CLARITY CLEAR; URINE COLOR YELLOW; URINE GLUCOSE-RANDOM* NEGATIVE (Negative); URINE KETONES NEGATIVE (Negative); URINE NITRITE-REFLEX NEGATIVE (Negative); URINE PROTEIN (DIPSTICK) TRACE (Negative); URINE SPECIFIC GRAVITY 1.015 (1.005-1.035); URINE UROBILINOGEN 0.2 E.U./dl (0.2-1.0)
[2021-12-06 11:18] LABS: URINE LEUKOCYTES-REFLEX 2+ (Negative)
[2021-12-06 11:32] LABS: CASTS None Seen /LPF (None Seen); MUCUS 0-3 Light strn/LPF (None Seen); SQUAMOUS 0-3 Few /LPF (0-3); URINE WBC-REFLEX 6-15 Few /HPF (0-5)
[2021-12-06 11:33] LABS: BACTERIA-REFLEX 1-9 Few /HPF (None Seen); CRYSTALS None Seen /LPF (None Seen); URINE RBC 1-2 Rare /HPF (NONE SEEN)
--- NOTE | 2021-12-06 17:04 | NUR ---
RN FOUND A DTI/BLISTER ON THE L BUTTOCKS, PICTURE TAKEN AND WOUND CONSULT COORDINATOR ORDERED
[2021-12-06 21:41] LABS: CREATININE 6.2 mg/dL (0.6-1.0); PHOSPHORUS 7.9 mg/dL (2.6-4.7)
[2021-12-07] VITALS (104 sets, daily range): BP systolic 78–169; BP diastolic 35–96
[2021-12-07 04:32] LABS: HEMOGLOBIN 8.3 gm/dL (12.0-15.0); MCH 27.4 pg (26.0-34.0); MCHC 31.9 g/dL (28.0-37.0); MCV 85.9 fL (80.0-100.0); RBC 3.03 mil/uL (4.20-5.00); RDW 16.7 % (10.5-14.5); WBC 26.5 thou/uL (4.0-11.0)
[2021-12-07 07:15] LABS: ALBUMIN 1.7 g/dL (3.4-5.0); CALCIUM 6.2 mg/dL (8.5-10.1); CREATININE 6.1 mg/dL (0.6-1.0); PHOSPHORUS 7.4 mg/dL (2.6-4.7); POTASSIUM 3.5 mmol/L (3.5-5.1)
--- NOTE | 2021-12-07 17:20 | NUR ---
Case discussed in ICU rounds. Pt's condition is guarded and the attending had family meeting with her dtr and several other family members to discuss her prognosis. They are debating dialysis or comfort care. Pt is a DNR. Will need temp dialysis cath. Renal also spoke with her dtr. Pt remains intubated and unresponsive with no sedation. Will follow.
[2021-12-08] VITALS (44 sets, daily range): BP systolic 84–146; BP diastolic 22–57
--- NOTE | 2021-12-08 05:20 | NUR ---
0100, nursing change and Carmona took over pt care.
[2021-12-08 05:51] LABS: HEMATOCRIT 23.7 % (37.0-47.0); HEMOGLOBIN 7.5 gm/dL (12.0-15.0); MCH 27.8 pg (26.0-34.0); MCHC 31.8 g/dL (28.0-37.0); MCV 87.3 fL (80.0-100.0); RBC 2.71 mil/uL (4.20-5.00); RDW 16.8 % (10.5-14.5)
[2021-12-08 05:56] LABS: ALBUMIN 1.7 g/dL (3.4-5.0); CREATININE 5.9 mg/dL (0.6-1.0); PHOSPHORUS 9.6 mg/dL (2.6-4.7); POTASSIUM 3.5 mmol/L (3.5-5.1)
[2021-12-08 06:05] LABS: CALCIUM 5.7 mg/dL (8.5-10.1)
--- NOTE | 2021-12-08 09:54 | NUR ---
At 0930, patient DPOA and sister at bedside. They wish to proceed with comfort/pallitive care. Education provided and all questions answer. Family understands process and wish to contiune. RN called Dr. Varela, who gave orders to make patient comfortable on morphine gtt and extubate when comfortable.
--- NOTE | 2021-12-08 20:35 | NUR ---
2030: pt tranferred to room 462. family was here during transfer. pt's report given to CAROLINE Mobley
--- NOTE | 2021-12-09 05:28 | NUR ---
PATIENT TRANSFERED FROM ICU WITH MORPHINE DRIP RUNNING AT 5 ML/HR. PATIENT IS COMFORTABLE THIS SHIFT.FAMILY AT BEDSIDE.FAMILY DID NOT WANT PATIENT TO BE TURNED Q 2HOURS. NO S/S OF PAIN OR DISCOMFORT AT THIS TIME. PATIENT IN BED ASLEEP AT THIS TIME BREATHING REGULAR AND UNLABOURED.
[2021-12-09 07:15] LABS: ALBUMIN 1.7 g/dL (3.4-5.0); CREATININE 5.9 mg/dL (0.6-1.0); PHOSPHORUS 11.3 mg/dL (2.6-4.7); POTASSIUM 3.5 mmol/L (3.5-5.1)
[2021-12-09 07:19] LABS: CALCIUM 5.6 mg/dL (8.5-10.1)
--- NOTE | 2021-12-09 10:07 | NUR ---
COMFORT CARE. A/O X 1. 2 L VIA NASAL CANNULA. LASSITER IN PLACE-AD[facility] URINE NOTED, RECTAL TUBE-LIQUID STOOL NOTED, RIGHT TRIPLE LUMEN IJ WITH A MORPHINE DRIP INFUSING CONT @ 5MLS/HR, RIGHT ARM SWOLLEN-ELEVATED ON PILLOW, LEFT HEARING AID IN PLACE PER FAMILY, RIGHT COCHLEAR IMPLANT, BILATERAL TOES NECROTIC, SLEEPING NOT OPENING EYES- WILL MOVE MOUTH WHEN SWAB PLACED TO LIPS, FAMILY AT BEDSIDE. DR. CONN MADE AWARE OF BS 602 AND CALCIUM 6.5, NO INTERVENTION AT THIS TIME, VS ONCE A SHIFT PER FAMILY REQUEST.
--- NOTE | 2021-12-09 14:52 | NUR ---
PT WAS TRANSFERED FROM ICU YESTERDAY HAVING BEEN MADE COMFORT MEASURES AFTER PALLIATIVE EXTUBATION. HOSPITALIST INDICATED THAT PT ISN'T IMMINENT AND MAY BE APPROPRIATE FOR TRANSFER TO HOSPICE HOUSE SETTING. CM CALLED PT'S DTR E'RA VELASQUEZ AND DISCUSSED HOSPICE. CM EDUCATED HER ABOUT HOSPICE HOUSE, HOSPICE GIP WITH [facility], AND HOSPICE AT HOME. DTR INDICATED SHE WOULD PREFER HOSPICE GIP HERE IS PT QUALIFIES OR HOME WITH HOSPICE PT HAD LIVED WITH DTR AND GDTR CRECHE ATTENDANT. DTR INDICATED SHE WAS RECEPTIVE TO REFERRAL BEING SENT TO [facility] FOR REVIEW FOR POSSIBLE GIP. CM CALLED [facility] AND FAXED REFERRAL. CECELIA INTAKE NURSE WILL LIKELY BE OVER THIS AFTERNOON. CM TO UPDATE FAMILY AND CARE TEAM.
== END 2021-12-09 17:30 | disposition hospice, inpatient (51) | DRG 870 ==
LOC: ER 13:20 → ICU 16:38 → EROBS 16:38 → 2N 18:45 → ICU 11-29 22:55 → 4W 12-08 20:30
PROVIDERS: Emergency Medicine; Hospitalist; Internal Medicine; Internal Medicine Nephrology; Internal Medicine Pulmonary Disease; Nurse Practitioner Adult Health; Nurse Practitioner Family; Pediatrics; Psychiatry & Neurology Neurology; Specialist; ADMIT Pediatrics; ATTEND Pediatrics
PROC: 02PA33Z Removal of Infusion Device from Heart, Percutaneous Approach (ICD-10-PCS; 2021-11-30)
PROC: 5A1955Z Respiratory Ventilation, Greater than 96 Consecutive Hours (ICD-10-PCS; principal; 2021-12-09)
PROC: 0BH17EZ Insertion of Endotracheal Airway into Trachea, Via Natural or Artificial Opening (ICD-10-PCS; 2021-12-09)
PROC: 02H633Z Insertion of Infusion Device into Right Atrium, Percutaneous Approach (ICD-10-PCS; 2021-12-09)
PROC: B548ZZA Ultrasonography of Superior Vena Cava, Guidance (ICD-10-PCS; 2021-12-09)
PROC: B5181ZA Fluoroscopy of Superior Vena Cava using Low Osmolar Contrast, Guidance (ICD-10-PCS; 2021-12-09)
DX: A41.89 Other specified sepsis (principal); G93.41 Metabolic encephalopathy; E43 Unspecified severe protein-calorie malnutrition; N17.0 Acute kidney failure with tubular necrosis; R65.21 Severe sepsis with septic shock; J96.21 Acute and chronic respiratory failure with hypoxia; J18.9 Pneumonia, unspecified organism; E87.1 Hypo-osmolality and hyponatremia; D62 Acute posthemorrhagic anemia; L97.811 Non-pressure chronic ulcer of other part of right lower leg limited to breakdown of skin; L97.821 Non-pressure chronic ulcer of other part of left lower leg limited to breakdown of skin; I47.1 Supraventricular tachycardia; N12 Tubulo-interstitial nephritis, not specified as acute or chronic; L97.921 Non-pressure chronic ulcer of unspecified part of left lower leg limited to breakdown of skin; Z20.822 Contact with and (suspected) exposure to COVID-19; Z79.899 Other long term (current) drug therapy; Z68.33 Body mass index [BMI] 33.0-33.9, adult; E87.5 Hyperkalemia; B96.1 Klebsiella pneumoniae [K. pneumoniae] as the cause of diseases classified elsewhere; I95.9 Hypotension, unspecified; I12.9 Hypertensive chronic kidney disease with stage 1 through stage 4 chronic kidney disease, or unspecified chronic kidney disease; E11.22 Type 2 diabetes mellitus with diabetic chronic kidney disease; N18.9 Chronic kidney disease, unspecified; Z66 Do not resuscitate; E11.65 Type 2 diabetes mellitus with hyperglycemia; E11.42 Type 2 diabetes mellitus with diabetic polyneuropathy; E11.622 Type 2 diabetes mellitus with other skin ulcer
CPT/HCPCS: 10047; 10078; 10194; 65040

== ENCOUNTER 2021-12-09 17:15 | Inpatient (IN) | payer OTHER ==
[~2021-12-09 17:15] MED LIST changes: +GLIPIZIDE5 MG PO; +LISINOPRIL2.5 MG PO; +MYSOLINE50 MG PO; +PRAVACHOL 20 MG20 M1 PO
--- NOTE | 2021-12-10 05:45 | NUR ---
Pt. is non-verbal and has rested quietly during the night when checked on during frequent rounds. Morphine gtt continues and patient shows no signs or symptoms of any pain. Family is at the bedside.
--- NOTE | 2021-12-10 13:18 | NUR ---
PATIENT @ 1020 FAMILY @ BEDSIDE, , [employer], [facility], NURSE SAROJ LINDER MADE AWARE OF HER PASSING. NURSE CALLED [facility], SHE IS A CANDIDATE FOR TISSUE AND EYE DONATION, FAMILY LEFT BEDSIDE @ 1243, POSTMORTUM CARE PERFORMED, RECTAL TUBE, LASSITER, RIGHT IJ ALL PULLED, IJ-GAUZE AND TAPE, ID TAG PLACE ON RIGHT GREAT TOE, PLACED IN BAG, ID TAG PLACED ON BAG, SECURITY CALLED, POSTMORTUM PAPERS GIVEN TO THEM, LEFT UNIT @ 1315.
== END 2021-12-10 13:15 | DRG 872 ==
LOC: 4W 17:15
PROVIDERS: ADMIT Hospitalist; ATTEND Hospitalist
DX: A41.9 Sepsis, unspecified organism (principal); R65.20 Severe sepsis without septic shock; E11.40 Type 2 diabetes mellitus with diabetic neuropathy, unspecified; I10 Essential (primary) hypertension; K21.9 Gastro-esophageal reflux disease without esophagitis; Z51.5 Encounter for palliative care; Z79.899 Other long term (current) drug therapy; Z98.42 Cataract extraction status, left eye; Z98.41 Cataract extraction status, right eye; Z87.81 Personal history of (healed) traumatic fracture
CPT/HCPCS: 10047